=== PATIENT | male | born 1985 | race Caucasian/White ===

== ENCOUNTER 2021-02-23 18:15 | Emergency (ER) | payer OTHER, SELFPAY ==
[2021-02-23 18:22] VITALS: BP 126/80; PULSE 79; RESP 12; TEMP 36.7; O2SAT 99
--- NOTE | 2021-02-23 18:36 | ED.SKABFB ---
HPI - Skin/Abscess/Foreign Bdy General Chief complaint: Skin/Abscess/Foreign Body Stated complaint: SPIDER BITE Source: patient and RN notes reviewed Limitations: no limitations History of Present Illness HPI narrative: The patient, previously mostly healthy, presents with skin eruption. Patient states he has a shorter , half week history of right calf bite . Symptoms are mild and worsening with developing fluctuance and quarter sized swelling associated with surrounding spreading redness. No fever, spontaneous drainage, streaking; patient agrees to incision and drainage, but declines parenteral/IM antibiotics Related Data Home Medications Medication Instructions Recorded Confirmed lisdexamfetamine [Vyvanse] mg 02/23/21 Allergies Allergy/AdvReac Type Severity Reaction Status Date / Time No Known Allergies Allergy Unverified 11/22/17 16:43 Review of Systems Review of Systems: General/Constitutional: No weight loss,fever Eyes: N0: Redness,discharge Ears/Nose/Throat: No: Epistaxis,ear discharge Respiratory: Denies: Hemoptysis Gastrointestinal: No Vomiting, Bleeding-rectal Skin: No Lumps, REPORTS eruption Neurologic: No Focal Weakness,Sz Hematologic: Denies: Petechiae/Purpura Psychiatric: No: Suicida ideationl All Other Systems: Reviewed and Negative PMFSH Comments At time of signature, agree with nursing past medical, surgical, social and family history. There is no relevant family history pertinent to the presenting complaint Exam Narrative: General Appearance: Well appearing, conjunctiva clear Ears: External ear normal, Auditory canal normal Nose: Normal nose, Nares clear Mouth/Throat: Normal appearing, Normal lips: Supple Respiratory: Airway patent, No respiratory distress MS-RLE: Normal strength (mostly intact, almost unlimited flexion/extension by pain), Tenderness (posteriorly, with mild decreased ROM), Swelling , Skin: Warm, Dry, dime sized developing abscess with surrounding cellulitis Neurological: A&O x3, Normal affect Course Vital Signs Vital signs: Vital Signs Temperature 98.1 F 02/23/21 18: Pulse Rate 79 02/23/21 18:22 Respiratory Rate 12 02/23/21 18:22 Blood Pressure 126/80 02/23/21 18:22 Pulse Oximetry 99 02/23/21 18:22 Temperature 98.1 F 02/23/21 18:22 Pulse Rate 79 02/23/21 18:22 Respiratory Rate 12 02/23/21 18:22 Blood Pressure 126/80 02/23/21 18:22 Pulse Oximetry 99 02/23/21 18:22 Procedures Abscess I/D lower extremity: Date of Incision: 02/23/21 Side (if applicable): right Sedation/analgesia: none Local Anesthetic: none Technique: needle aspiration Irrigation: No Packing used?: none I&D Results: Pus Discharge Plan Discharge Clinical Impression: Abscess of skin or subcutaneous tissue Qualifiers: Site of cutaneous abscess: extremity Site of cutaneous abscess of extremity: lower extremity Laterality: right Qualified Code(s): L02.415 - Cutaneous abscess of right lower limb Patient Disposition: Home, Self-Care Condition: Improved Instructions: Antibiotic Form, MRSA (Methicillin-Resistant Staphylococcus Aureus) (ED) Additional Instructions: Stop clindamycin if diarrhea occurs; take clindamycin with antacid, food and/or probiotic Prescriptions: New clindamycin HCl 300 mg capsule 300 mg PO TID Qty: 21 RF: 0 mupirocin 2 % ointment 1 applic TOPICAL TID Qty: 30 RF: 0 No Action Vyvanse 40 mg capsule RF: 0 Follow-up/Referrals: YENIFER,ARIANE NAVAS [Primary Care Provider] -
== END 2021-02-23 18:46 | disposition home or self-care (01) ==
PROVIDERS: Emergency Provider Emergency Medicine; PCP Nurse Practitioner Family
DX: L02.415 Cutaneous abscess of right lower limb (principal)
CPT/HCPCS: 10160; 87070; 87077; 87186; 87205; 99203; G0463